=== PATIENT | male | born 1965 | race Caucasian/White ===

== ENCOUNTER 2018-02-26 09:18 | Day surgery (SDC) | payer OTHER ==
[2018-02-26] MEDS ORDERED: PROPOFOL 40 ML (10:58)
[2018-02-26] MEDS ORDERED: LIDOCAINE 2% (SDV) 5 ML INJ (10:58)
[2018-02-26] MEDS ORDERED: PROPOFOL 20 ML (11:00)
[2018-02-26] MEDS ORDERED: ONDANSETRON 4 MG INJ IV (11:30)
== END 2018-02-26 15:46 | disposition home or self-care (01) ==
LOC: GIL 09:18
DX: Z12.11 Encounter for screening for malignant neoplasm of colon (principal); K64.8 Other hemorrhoids
CPT/HCPCS: 45378